=== PATIENT | male | born 1975 | race American Indian/Alaskan Native ===

== ENCOUNTER 2021-03-15 21:19 | Observation (INO) | payer SELFPAY ==
[2021-03-15] MEDS ORDERED: NITROGLYCERIN 0.4 MG TAB SUBL SL ONE (22:14)
--- NOTE | 2021-03-15 22:14 | Emergency Department Report ---
ED General Adult HPI - General Chief complaint: Chest Pain Stated complaint: Left arm pain, left chest pain PUI?: No Time Seen by Provider: 03/15/21 21:58 Source: patient, EMS ( EMS documentation not available at time of chart dictation ), RN notes reviewed Mode of arrival: Stretcher Limitations: No Limitations - History of Present Illness Initial comments: The patient is a pleasant 45-year-old gentleman, with a history of obesity, body mass index of 46, obstructive sleep apnea, CAD, status post CO, diabetes, tobacco use. The patient presents to the ER with a complaint of nontraumatic left-sided chest pain that moves down his left upper extremity. This started last night. It is now present. He denies headache, neck pain, abdominal pain, vomiting, diaphoresis, travel, surgery, DVT and pulmonary embolism risk factors. He was given aspirin by EMS today. He otherwise has not taken aspirin. Patient reports having had a heart attack 2 years ago at [facility] [place], and states this feels exactly the same. The patient has not received his Covid vaccination. He denies loss of taste and smell. He denies midline spinal pain, and bladder/bowel retention or incontinence. There is no family history of DVT or pulmonary embolism that he is aware of. He does not have a local primary care doctor. 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 He reports he is noncompliant with his medications secondary to insurance and proctor issues. He reports that 5 days ago he took an erectile dysfunction medication. However, he has not taken an ED medication in the past 48 hours. -: Sudden, hour(s), days(s) Location: chest Radiation: extremity Quality: aching Consistency: intermittent Improves with: none Worsens with: none Associated Symptoms: denies other symptoms ED Review of Systems ROS: Stated complaint: ARM PAIN Other details as noted in HPI Constitutional: other (Denies loss of taste and smell). denies: fever, weakness Eyes: denies: eye discharge Respiratory: shortness of breath (Chronic shortness of breath). denies: cough Cardiovascular: chest pain Gastrointestinal: denies: abdominal pain Musculoskeletal: denies: back pain Neurological: numbness, paresthesias. denies: weakness ED Past Medical Hx - Past Medical History Hx Hypertension: Yes Hx Heart Attack/AMI: Yes Hx Diabetes: Yes - Social History Smoking Status: Never Smoker ED Physical Exam - General Limitations: No Limitations General appearance: alert, in no apparent distress, obese - Head Head exam: Present: atraumatic, normocephalic - Eye Eye exam: Present: normal appearance, EOMI. Absent: nystagmus - ENT ENT exam: Present: normal exam, normal orophraynx, mucous membranes moist, normal external ear exam - Neck Neck exam: Present: normal inspection, full ROM. Absent: tenderness, meningismus - Respiratory Respiratory exam: Present: normal lung sounds bilaterally. Absent: respiratory distress, wheezes, rales, rhonchi, stridor, decreased breath sounds - Cardiovascular Cardiovascular Exam: Present: regular rate, normal rhythm, normal heart sounds. Absent: bradycardia, tachycardia, irregular rhythm, systolic murmur, diastolic murmur, rubs, gallop - GI/Abdominal GI/Abdominal exam: Present: soft. Absent: distended, tenderness, guarding, rebound, rigid, pulsatile mass - Rectal Rectal exam: Present: deferred - Extremities Exam Extremities exam: Present: normal inspection, full ROM, other (2+ pulses noted in the bilateral upper and lower extremities. There is no palpable cord. negative Homans sign. Muscular compartments are soft. The pelvis is stable.). Absent: pedal edema, calf tenderness - Back Exam Back exam: Present: normal inspection, full ROM. Absent: tenderness, CVA tenderness (R), CVA tenderness (L), paraspinal tenderness, vertebral tenderness - Neurological Exam Neurological exam: Present: alert, oriented X3, normal gait, other (No facial droop. Tongue midline. Extraocular movements intact bilaterally. Facial sensation intact to light touch in V1, V2, V3 distribution bilaterally. 5 and a 5 strength in 4 extremities. Sensation intact to light touch in 4 extremities.). Absent: motor sensory deficit - Psychiatric Psychiatric exam: Present: normal affect, normal mood - Skin Skin exam: Present: warm, dry, intact, normal color. Absent: rash ED Course Vital Signs 03/15/21 21:24 Temperature 98.5 F Pulse Rate 86 Respiratory 22 Rate Blood Pressure 151/92 O2 Sat by Pulse 99 Oximetry - Reevaluation(s) Reevaluation #1: 03/15/21 22:53 Differential diagnosis, including but not limited to: Acute coronary syndrome, GERD, gastritis, hiatal hernia, pneumonia, cervical radiculopathy, obesity, obstructive sleep apnea, noncompliance Assessment and plan: 45-year-old gentleman, who is not currently tachycardic, tachypneic or hypoxic, who denies DVT and pulmonary embolism risk factors, who is low risk by Wells criteria for pulmonary embolism, PERC negative, with chest pain that radiates to the left upper extremity, moderate risk for major adverse cardiac event as per heart score. We do not have access to this patient's old medical records, stress test, catheterization, or EKG. There may be component of cervical radiculopathy here, however, he has 5-5 strength, full range of motion, sensation is intact to light touch in 4 extremities, and has no acute neurologic deficits. Rest, ice, compression, elevation, outpatient physical therapy, and weight loss. We will treat the patient's pain. We will obtain appropriate laboratory studies. We will obtain x-ray the chest. We will reassess after his initial data points. Have recommended admission to the medical service for cardiac risk ratification. I discussed this plan of care with the patient, who verbalized understanding, and who is agreeable to the aforementioned. 03/15/21 23:29 X-ray the chest unremarkable. Laboratory studies unremarkable. Patient to be admitted to the medical service; SHEA Torres working with Dr Dominguez Alfredo to admit for cardiac risk stratification.. ED Medical Decision Making - Lab Data Result diagrams: 03/15/21 22:27 03/15/21 22:27 Vital Signs 03/15/21 21:24 Temperature 98.5 F Pulse Rate 86 Respiratory 22 Rate Blood Pressure 151/92 O2 Sat by Pulse 99 Oximetry Lab Results 03/15/21 03/15/21 03/15/21 Range/Units 22:27 22:27 22:27 WBC 7.2 (4.5-11.0) K/mm3 RBC 5.28 H (3.65-5.03) M/mm3 Hgb 15.7 H (11.8-15.2) gm/dl Hct 46.3 H (35.5-45.6) % MCV 88 (84-94) fl MCH 30 (28-32) pg MCHC 34 (32-34) % RDW 14.3 (13.2-15.2) % Plt Count 213 (140-440) K/mm3 Lymph % (Auto) 28.4 (13.4-35.0) % [place] % (Auto) 7.5 H (0.0-7.3) % Eos % (Auto) 1.4 (0.0-4.3) % Baso % (Auto) 0.5 (0.0-1.8) % Lymph # (Auto) 2.0 (1.2-5.4) K/mm3 [place] # (Auto) 0.5 (0.0-0.8) K/mm3 Eos # (Auto) 0.1 (0.0-0.4) K/mm3 Baso # (Auto) 0.0 (0.0-0.1) K/mm3 Seg Neutrophils % 62.2 (40.0-70.0) % Seg Neutrophils # 4.5 (1.8-7.7) K/mm3 PT 12.0 L (12.2-14.9) Sec. INR 0.83 L (0.87-1.13) Sodium 139 (137-145) mmol/L Potassium 4.3 (3.6-5.0) mmol/L Chloride 102.7 (98-107) mmol/L Carbon Dioxide 26 (22-30) mmol/L Anion Gap 15 mmol/L BUN 11 (9-20) mg/dL Creatinine 0.7 L (0.8-1.3) mg/dL Estimated GFR > 60 ml/min BUN/Creatinine Ratio 16 % Glucose 136 H (75-100) mg/dL Calcium 9.1 (8.4-10.2) mg/dL Magnesium 2.00 (1.7-2.3) mg/dL Total Creatine Kinase 182 H (55-170) units/L Troponin T < 0.010 (0.00-0.029) ng/mL - EKG Data -: EKG Interpreted by Me EKG shows normal: sinus rhythm Rate: normal - EKG Data When compared to previous EKG there are: previous EKG unavailable 03/15/21 22:55 EKG interpreted at 22: 19 Sinus rhythm, 83 bpm, left axis deviation, poor R wave progression, low voltage, intervals within normal limits. Abnormal EKG. No prior for comparison. This is not a STEMI. - Radiology Data Radiology results: pending, image reviewed interpreted by me: 2 view x-ray of the chest, interpreted by myself: No pneumothorax, clear lungs, unremarkable bony anatomy, unremarkable cardiac silhouette. Critical care attestation.: If time is entered above; I have spent that time in minutes in the direct care of this critically ill patient, excluding procedure time. ED Disposition Clinical Impression: Acute chest pain, History of coronary artery disease, Body mass index (BMI) of 45.0 to 49.9 in adult, Noncompliance, History of obstructive sleep apnea Disposition: OP ADMIT IP TO THIS HOSP Is pt being admited?: Yes Does the pt Need Aspirin: No (Given by EMS) Condition: Good Instructions: Chest Pain (ED) Referrals: PRIMARY CARE,MD [Primary Care Provider] - 3-5 Days Heart Score - HEART Score History: Moderately suspicious EKG: Non-specific Age: 45-65 Risk factors: > 3 risk factors or hx of atherosclerotic disease Troponin: < normal limit HEART Score: 5 - EKG Read Time Time EKG Completed: 22:19 EKG Read Time: 22:20 - Critical Actions Critical Actions: 4-6 pts:12-16.6% risk of adverse cardiac event. Should be admitted
[2021-03-15 22:55] LABS: Basophils % (Auto) 0.5 % (0.0-1.8); Eosinophils # (Auto) 0.1 K/mm3 (0.0-0.4); Eosinophils % (Auto) 1.4 % (0.0-4.3); Hematocrit 46.3 % (35.5-45.6); Hemoglobin 15.7 gm/dl (11.8-15.2); Lymphocytes % (Auto) 28.4 % (13.4-35.0); Mean Corpuscular HGB Conc 34 % (32-34); Mean Corpuscular Volume 88 fl (84-94); Monocytes # (Auto) 0.5 K/mm3 (0.0-0.8); Monocytes % (Auto) 7.5 % (0.0-7.3); Platelet Count 213 K/mm3 (140-440); Red Blood Count 5.28 M/mm3 (3.65-5.03); Red Cell Distribution Width 14.3 % (13.2-15.2)
[2021-03-15 23:05] LABS: INR 0.83 (0.87-1.13)
[2021-03-15 23:17] LABS: Blood Urea Nitrogen 11 mg/dL (9-20); Calcium 9.1 mg/dL (8.4-10.2); Hemolysis Index 3
[2021-03-15 23:21] LABS: BUN/Creatinine Ratio 16
--- NOTE | 2021-03-15 23:22 | XRay Report ---
. XR chest routine 2V INDICATION / CLINICAL INFORMATION: Chest Pain COMPARISON: None available. FINDINGS: SUPPORT DEVICES: None. HEART / MEDIASTINUM: No significant abnormality. LUNGS / PLEURA: Lungs are clear. Costophrenic sulci are sharp. No pneumothorax. ADDITIONAL FINDINGS: No significant additional findings. IMPRESSION: 1. No acute findings. Signer Name: Alejandro Franklin MD Signed: 03/15/2021 11:17 PM Workstation Name: [id number]
[2021-03-15] MEDS ORDERED: ONDANSETRON 4 MG/2 ML INJ IV PRN (23:42)
[2021-03-15] MEDS ORDERED: DEXTROSE 50% IN WATER (25GM) 50 ML SYRINGE IV PRN (23:42)
[2021-03-15] MEDS ORDERED: ALBUTEROL 2.5 MG/3 ML NEBU IH PRN (23:42)
[2021-03-15] MEDS ORDERED: ACETAMINOPHEN 325 MG TAB PO PRN (23:42)
[2021-03-15] MEDS ORDERED: MORPHINE 2 MG/1 ML INJ IV PRN (23:44)
[2021-03-15] MEDS ORDERED: NALOXONE 0.4 MG/1 ML INJ IV PRN (23:44)
[2021-03-15] MEDS ORDERED: NITROGLYCERIN 0.4 MG TAB SUBL SL PRN (23:44)
[2021-03-15] MEDS ORDERED: HYDROmorphone 1 MG/1 ML INJ IV PRN (23:44)
[2021-03-15] MEDS ORDERED: D5W/0.45% NACL 1,000 ML IV SCH (23:45)
--- NOTE | 2021-03-15 23:59 | History and Physical Report ---
History of Present Illness Date of examination: 03/15/21 Date of admission: 03/15/2021 Chief complaint: chest pain History of present illness: 45-year-old -[place]in[place] male with history of hypertension, GA (2 years ago), DM, CAD, EMILIANA (noncompliant with CPAP) obesity, tobacco use, and marijuana use who presents [facility] ED with complaints of left-sided chest pain. Patient states he is experiencing 10/10 sharp constant left-sided chest pain with radiation to the left upper extremity x1 day. He states that the pain goes all the way down to his fingers endorses numbness in left fingers. Denies diaphoresis, nausea, or vomiting. He reports the pain feels " exactly the same" when he had his heart attack 2 years ago. Endorses taking erectile dysfunction medication approximately 5 days ago, however he has not taken any meds in the past 48 hours. Denies fever, chills, cough, headache, alterations in vision, alterations in gait, recent fall/injury, abdominal pain, cough, hemoptysis, or recent sick contacts Past History Past Medical History: acute GA (2yrs ago), diabetes, hypertension, hyperlipidemia, other (tobacco use, EMILIANA with CPAP, obesity, ) Past Surgical History: No surgical history, hernia repair (Groin and abdominal) Social history: lives with family (Brother), smoking (Smokes tobacco and marijuana). denies: alcohol abuse, prescription drug abuse, IV drug use Family history: diabetes, hypertension Medications and Allergies Active Meds: Active Medications Nitroglycerin (Nitroglycerin 0.4 Mg Tab Subl) 0.4 mg SL Q5M ONE Stop: 03/15/21 22:15 Review of Systems All systems: negative (As noted in HPI) Exam - Physical Exam Narrative exam: Physical exam General appearance: Present: No acute distress, alert and oriented 3, obese middle-age adult male - EENT Eyes: Present: PERRL, EOM intact ENT: hearing intact, normal dentition - Neck Neck: Present: supple, normal ROM - Respiratory Respiratory effort: Non-labored Respiratory: Diminished bases - Cardiovascular Heart rate: 83 (bpm) Rhythm: Sinus rhythm Heart Sounds: Present: S1 & S2. Absent: rub, click - Extremities Extremities: no ischemia, pulses intact, - Peripheral Assessment Peripheral Pulses: within normal limits - Abdominal General gastrointestinal: Obese, soft, non-tender, normal bowel sounds - Integumentary Integumentary: Present: warm, dry - Musculoskeletal Musculoskeletal: Able to move all extremities -Neurological Neurological: CN II-XII intact - Psychiatric Psychiatric: cooperative - Constitutional Vitals: Temp Pulse Resp BP Pulse Ox 98.5 F 86 22 151/92 99 03/15/21 21:24 03/15/21 21:24 03/15/21 21:24 03/15/21 21:24 03/15/21 21:24 HEART Score - HEART Score EKG: Non-specific Age: 45-65 Risk factors: > 3 risk factors or hx of atherosclerotic disease Troponin: Troponin T < 0.010 ng/mL (0.00-0.029) 03/15/21 22:27 Troponin: < normal limit - Critical Actions Critical Actions: 4-6 pts:12-16.6% risk of adverse cardiac event. Should be admitted Results - Labs CBC & Chem 7: 03/15/21 22:27 03/15/21 22:27 Labs: Laboratory Last Values WBC 7.2 K/mm3 (4.5-11.0) 03/15/21 22:27 RBC 5.28 M/mm3 (3.65-5.03) H 03/15/21 22:27 Hgb 15.7 gm/dl (11.8-15.2) H 03/15/21 22:27 Hct 46.3 % (35.5-45.6) H 03/15/21 22:27 MCV 88 fl (84-94) 03/15/21 22:27 MCH 30 pg (28-32) 03/15/21 22:27 MCHC 34 % (32-34) 03/15/21 22:27 RDW 14.3 % (13.2-15.2) 03/15/21 22:27 Plt Count 213 K/mm3 (140-440) 03/15/21 22:27 Lymph % (Auto) 28.4 % (13.4-35.0) 03/15/21 22:27 [place] % (Auto) 7.5 % (0.0-7.3) H 03/15/21 22:27 Eos % (Auto) 1.4 % (0.0-4.3) 03/15/21 22:27 Baso % (Auto) 0.5 % (0.0-1.8) 03/15/21 22:27 Lymph # (Auto) 2.0 K/mm3 (1.2-5.4) 03/15/21 22:27 [place] # (Auto) 0.5 K/mm3 (0.0-0.8) 03/15/21 22:27 Eos # (Auto) 0.1 K/mm3 (0.0-0.4) 03/15/21 22:27 Baso # (Auto) 0.0 K/mm3 (0.0-0.1) 03/15/21 22:27 Seg Neutrophils % 62.2 % (40.0-70.0) 03/15/21 22:27 Seg Neutrophils # 4.5 K/mm3 (1.8-7.7) 03/15/21 22:27 PT 12.0 Sec. (12.2-14.9) L 03/15/21 22:27 INR 0.83 (0.87-1.13) L 03/15/21 22:27 Sodium 139 mmol/L (137-145) 03/15/21 22:27 Potassium 4.3 mmol/L (3.6-5.0) 03/15/21 22:27 Chloride 102.7 mmol/L (98-107) 03/15/21 22:27 Carbon Dioxide 26 mmol/L (22-30) 03/15/21 22:27 Anion Gap 15 mmol/L 03/15/21 22:27 BUN 11 mg/dL (9-20) 03/15/21 22:27 Creatinine 0.7 mg/dL (0.8-1.3) L 03/15/21 22:27 Estimated GFR > 60 ml/min 03/15/21 22:27 BUN/Creatinine Ratio 16 % 03/15/21 22:27 Glucose 136 mg/dL (75-100) H 03/15/21 22:27 Calcium 9.1 mg/dL (8.4-10.2) 03/15/21 22:27 Magnesium 2.00 mg/dL (1.7-2.3) 03/15/21 22:27 Total Creatine Kinase 182 units/L (55-170) H 03/15/21 22:27 Troponin T < 0.010 ng/mL (0.00-0.029) 03/15/21 22:27 - Imaging and Cardiology Imaging and Cardiology: CXR: FINDINGS: SUPPORT DEVICES: None. HEART / MEDIASTINUM: No significant abnormality. LUNGS / PLEURA: Lungs are clear. Costophrenic sulci are sharp. No pneumothorax. ADDITIONAL FINDINGS: No significant additional findings. IMPRESSION: 1. No acute findings. Assessment and Plan Assessment and plan: Acute Chest Pain -R/O ACS -History of GA (2 years ago treated at [facility]) -Initiate chest pain protocol -Continuous telemetry monitoring -Continue supportive care -Pain mgmt -Troponin negative x 1, will continue to trend -CXR unrevealing -EKG unrevealing for acute ischemic abnormalities -Echo and Lexiscan pending -Start ASA and statin -Cardiology consulted HTN -Monitor BP -Resume home hypertensive meds once medication reconciliation has been updated DM -POC BG monitoring -SSI coverage prn -HgbA1C pending History of EMILIANA -Noncompliant with nocturnal CPAP (reports machine is broken unable to replace) -Placed on nocturnal CPAP while inpatient Obesity -BMI 46 -Diet and lifestyle modifications -May benefit from OP weight mgmt program Tobacco abuse -Current every day smoker -Reports smoking Black and mild 1-2 times per day 7 days a week -Counseled for cessation -Nicotine patch when necessary Marijuana use -Reports smoking marijuana 1-2 times a month -Counseled for cessation DVT and GI PPX -On Lovenox and Pepcid Advance Directives: No VTE prophylaxis?: Chemical, Mechanical Plan of care discussed with patient/family: Yes
[2021-03-16] MEDS ORDERED: NICOTINE 14 MG/24 HR PATCH TD ONE (00:23)
[2021-03-16] MEDS: INSULIN LISPRO 100 UNIT/ML SUB-Q SCH ×4 (02:05→18:44)
[2021-03-16] MEDS ORDERED: REGADENOSON 0.4 MG/5 ML INJ IV ONE (08:23)
[2021-03-16] MEDS ORDERED: ENOXAPARIN 40 MG/0.4 ML INJ SUB-Q SCH (10:00)
[2021-03-16] MEDS ORDERED: ASPIRIN EC 325 MG TAB PO SCH (10:00)
--- NOTE | 2021-03-16 10:35 | Nuclear Medicine Report ---
APPROVED REPORT Exam: Nuclear Stress Test Indication: Chest pain BMI: 0 Stress Test Details Stress Test: Pharmacologic stress testing performed using 0.4 mg of regadenoson per 5 mL given IV over 10 seconds. HR Resting HR: 62 bpm Max HR Achieved: 93 bpm Max Heart Rate (APMHR): 176 bpm Target HR (85% APMHR): 149 bpm % of APMHR: 52 Recovery HR: 74 bpm HR response to stress: Normal HR response to stress BP Resting BP: 135/83 mmHg Max BP: 148/94 mmHg Recovery BP: 138/81 mmHg BP response to stress: Normal blood pressure response to stress. ECG Resting ECG: Sinus Rhythm Stress ECG: Sinus Rhythm ST Change: None Arrhythmia: None Recovery ECG: Sinus Rhythm Recovery ST Change: None Recovery Arrhythmia: None Clinical Reason for Termination: Completed protocol Stress Symptoms: None NM EXAM: Myocardial Perfusion REST/STRESS Imaging Protocol: Rest TI-201/Stress Tc-99m Resting Data Rest SPECT myocardial perfusion imaging was performed in supine position minutes following the intravenous injection of 10 mCi of Tc-99m Myoview. Time of rest injection: 0700 Pharmacologic Stress Pharmacologic stress test was performed by injecting Regadenoson 0.4 mg IV push followed by the intravenous injection of 28 mCi of Tc-99m Myoview. Time of stress injection: 0842 Gated Stress SPECT was performed 30 minutes after stress injection. The images were gated to evaluate regional wall motion and calculate left ventricular ejection fraction. Study Quality Study: excellent Lung Uptake: Normal Study Data TID = 0.95. Perfusion Wall Motion The rest and stress images show normal left ventricular wall motion.LVEF post stress is 52%,mildly dilated LV noted. Nuclear Conclusion ECG Findings: negative for ischemia Clinical Findings: negative for ischemia Nuclear Findings: negative for ischemia Exercise Capacity: not assessed Left Ventricular Function: normal Risk Study: low This is a low risk study with no significant iscemia or scar.
--- NOTE | 2021-03-16 11:06 | Progress Note ---
Assessment and Plan Assessment and plan: Acute Chest Pain -R/O ACS -History of [place] (2 years ago treated at [facility] [place]) -Initiate chest pain protocol -Continuous telemetry monitoring -Continue supportive care -Pain mgmt -Troponin negative x 1, will continue to trend -CXR unrevealing -EKG unrevealing for acute ischemic abnormalities -Echo and Lexiscan pending -Start ASA and statin -Cardiology consulted Left hand numbness -Check cervical spine films HTN -Monitor BP -Resume home hypertensive meds once medication reconciliation has been updated DM -POC BG monitoring -SSI coverage prn -HgbA1C pending History of EMILIANA -Noncompliant with nocturnal CPAP (reports machine is broken unable to replace) -Placed on nocturnal CPAP while inpatient Obesity -BMI 46 -Diet and lifestyle modifications -May benefit from OP weight mgmt program Tobacco abuse -Current every day smoker -Reports smoking Black and mild 1-2 times per day 7 days a week -Counseled for cessation -Nicotine patch when necessary Marijuana use -Reports smoking marijuana 1-2 times a month -Counseled for cessation DVT and GI PPX -On Lovenox and Pepcid History Interval history: No new issues overnight Hospitalist Physical - Constitutional Vitals: Temp Pulse Resp BP Pulse Ox 98.2 F 68 18 136/99 96 03/16/21 10:50 03/16/21 10:50 03/16/21 10:50 03/16/21 10:50 03/16/21 10:50 General appearance: Present: no acute distress, well-nourished - EENT Eyes: Present: PERRL, EOM intact ENT: hearing intact, clear oral mucosa, dentition normal - Neck Neck: Present: supple, normal ROM - Respiratory Respiratory effort: normal Respiratory: bilateral: CTA - Cardiovascular Rhythm: regular Heart Sounds: Present: S1 & S2. Absent: gallop, rub - Extremities Extremities: no ischemia, No edema, Full ROM - Abdominal General gastrointestinal: soft, non-tender, non-distended, normal bowel sounds - Integumentary Integumentary: Present: clear, warm, dry - Neurologic Neurologic: CNII-XII intact, moves all extremities HEART Score - HEART Score EKG: Non-specific Age: 45-65 Risk factors: > 3 risk factors or hx of atherosclerotic disease Troponin: Troponin T < 0.010 ng/mL (0.00-0.029) 07/08/21 06:10 Troponin: < normal limit - Critical Actions Critical Actions: 4-6 pts:12-16.6% risk of adverse cardiac event. Should be admitted Results - Labs CBC & Chem 7: 03/15/21 22:27 03/15/21 22: Labs: Laboratory Last Values WBC 7.2 K/mm3 (4.5-11.0) 03/15/21 22:27 RBC 5.28 M/mm3 (3.65-5.03) H 03/15/21 22:27 Hgb 15.7 gm/dl (11.8-15.2) H 03/15/21 22: Hct 46.3 % (35.5-45.6) H 03/15/21 22: MCV 88 fl (84-94) 03/15/21 22: MCH 30 pg (28-32) 03/15/21 22: MCHC 34 % (32-34) 03/15/21 22: RDW 14.3 % (13.2-15.2) 03/15/21 22: Plt Count 213 K/mm3 (140-440) 03/15/21 22:27 Lymph % (Auto) 28.4 % (13.4-35.0) 03/15/21 22: [place] % (Auto) 7.5 % (0.0-7.3) H 03/15/21 22: Eos % (Auto) 1.4 % (0.0-4.3) 03/15/21 22: Baso % (Auto) 0.5 % (0.0-1.8) 03/15/21 22: Lymph # (Auto) 2.0 K/mm3 (1.2-5.4) 03/15/21 22: [place] # (Auto) 0.5 K/mm3 (0.0-0.8) 03/15/21 22: Eos # (Auto) 0.1 K/mm3 (0.0-0.4) 03/15/21 22: Baso # (Auto) 0.0 K/mm3 (0.0-0.1) 03/15/21 22: Seg Neutrophils % 62.2 % (40.0-70.0) 03/15/21 22:27 Seg Neutrophils # 4.5 K/mm3 (1.8-7.7) 03/15/21 22:27 PT 12.0 Sec. (12.2-14.9) L 03/15/21 22:27 INR 0.83 (0.87-1.13) L 03/15/21 22:27 Sodium 139 mmol/L (137-145) 03/15/21 22:27 Potassium 4.3 mmol/L (3.6-5.0) 03/15/21 22:27 Chloride 102.7 mmol/L (98-107) 03/15/21 22:27 Carbon Dioxide 26 mmol/L (22-30) 03/15/21 22:27 Anion Gap 15 mmol/L 03/15/21 22:27 BUN 11 mg/dL (9-20) 03/15/21 22:27 Creatinine 0.7 mg/dL (0.8-1.3) L 03/15/21 22:27 Estimated GFR > 60 ml/min 03/15/21 22:27 BUN/Creatinine Ratio 16 % 03/15/21 22:27 Glucose 136 mg/dL (75-100) H 03/15/21 22:27 Hemoglobin A1c 8.2 % (4-6) H 03/15/21 22:27 Calcium 9.1 mg/dL (8.4-10.2) 03/15/21 22:27 Magnesium 2.00 mg/dL (1.7-2.3) 03/15/21 22:27 Total Creatine Kinase 182 units/L (55-170) H 03/15/21 22:27 Troponin T < 0.010 ng/mL (0.00-0.029) 03/16/21 06:10 Active Medications - Current Medications Current Medications: Generic Name Dose Route Start Last Admin Trade Name Freq PRN Reason Stop Dose Admin Acetaminophen 650 mg 03/15/21 23:42 Acetaminophen 325 Mg Tab PO Q4H PRN Pain MILD(1-3)/Fever >100.5/WU Albuterol 2.5 mg 03/15/21 23:42 Albuterol 2.5 Mg/3 Ml Nebu IH Q3HRT PRN Shortness Of Breath Aspirin 325 mg 03/16/21 10:00 Aspirin Ec 325 Mg Tab PO QDAY KEENA Atorvastatin Calcium 40 mg 03/16/21 22:00 Atorvastatin 40 Mg Tab PO QHS [facility] Dextrose 50 ml 03/15/21 23:42 Dextrose 50% In Water (25gm) 50 Ml Syringe IV Q30MIN PRN Hypoglycemia Protocol Enoxaparin Sodium 40 mg 03/16/21 10:00 Enoxaparin 40 Mg/0.4 Ml Inj SUB-Q QDAY [facility] Famotidine 20 mg 03/16/21 10:00 Famotidine 20 Mg Tab PO BID [facility] Hydromorphone HCl 0.5 mg 03/15/21 23:44 Hydromorphone 1 Mg/1 Ml Inj IV Q3H PRN Pain , Severe (7-10) Dextrose/Sodium Chloride 1,000 mls @ 75 mls/hr 03/15/21 23:45 D5/0.45ns IV 03/16/21 12:00 DIRECT [facility] Insulin Human Lispro 0 unit 03/16/21 00:00 03/16/21 06:46 Insulin Lispro 100 Unit/Ml SUB-Q Not Given Q6HR [facility] Protocol Morphine Sulfate 2 mg 03/15/21 23:44 Morphine 2 Mg/1 Ml Inj IV Q4H PRN Pain, Moderate (4-6) Naloxone HCl 0.1 mg 03/15/21 23:44 Naloxone 0.4 Mg/1 Ml Inj IV Q2MIN PRN Res Rate </= 8 or 02 SAT < 92% Nitroglycerin 0.4 mg 03/15/21 23:44 Nitroglycerin 0.4 Mg Tab Subl SL .Q5MIN PRN Chest Pain Ondansetron HCl 4 mg 03/15/21 23:42 Ondansetron 4 Mg/2 Ml Inj IV Q6H PRN Nausea And Vomiting Sodium Chloride 10 ml 03/16/21 10:00 Sodium Chloride 0.9% 10 Ml Flush Syringe IV BID [facility] Sodium Chloride 10 ml 03/15/21 23:42 Sodium Chloride 0.9% 10 Ml Flush Syringe IV PRN PRN LINE FLUSH
[2021-03-16] MEDS: FAMOTIDINE 20 MG TAB PO SCH ×2 (11:30→21:49)
--- NOTE | 2021-03-16 13:25 | XRay Report ---
CERVICAL SPINE 4 VIEWS 1155 INDICATION: left hand numbness COMPARISON: None available. FINDINGS: Study includes a swimmer's lateral view. Bony detail in lateral projection is reduced at C6 and particularly at C7. No fractures or dislocations are obvious. Mild degenerative changes are seen in the lower cervical sp ine. Mild disc space narrowing is noted at C5-6 where there is slight retrolisthesis. No soft tissue swelling is seen. Signer Name: Martinez Rose MD Signed: 03/16/2021 1:20 PM Workstation Name: [id number]
--- NOTE | 2021-03-16 16:01 | Consultation ---
History of Present Illness Consult date: 03/16/21 Requesting physician: NATAN PEDROZA Consult reason: chest pain History of present illness: This patient is a 45-year-old male with a significant history of coronary artery disease, AMI 2 years ago, hypertension, diabetes, EMILIANA, tobacco use. He is previously unknown to our practice. Patient presents to [facility] ER with complaint of chest pain x1 day. Chest pain is described as 10 out of 10, sharp substernal to left-sided with radiation to the left hand. Patient states this is identical to symptoms prior to his myocardial infarction 2 years ago. At time of interview chest pain is resolved and patient is symptom-free. He denies weakness, dizziness, shortness of breath, abdominal pa in, N/V/D, recent illness or known exposures. Patient interview is in stress lab prior to exercise MPI stress test. Patient endorses history of EMILIANA noncompliant with CPAP and fell asleep after interview. Past History Past Medical History: acute PR (2yrs ago), diabetes, hypertension, hyperlipidemia, other (tobacco use, EMILIANA with CPAP, obesity, see HPI) Past Surgical History: No surgical history, hernia repair (Groin and abdominal) Social history: lives with family (Brother), smoking (Smokes tobacco and marijuana). denies: alcohol abuse, prescription drug abuse, IV drug use Family history: diabetes, hypertension Medications and Allergies Allergies Allergy/AdvReac Type Severity Reaction Status Date / Time sheep derived (ovine) Allergy Shortness Verified 03/16/21 01:19 of Breath peanut AdvReac Swelling Verified 03/16/21 01:19 Active Meds: Active Medications Acetaminophen (Acetaminophen 325 Mg Tab) 650 mg PO Q4H PRN PRN Reason: Pain MILD(1-3)/Fever >100.5/WU Albuterol (Albuterol 2.5 Mg/3 Ml Nebu) 2.5 mg IH Q3HRT PRN PRN Reason: Shortness Of Breath Aspirin (Aspirin Ec 325 Mg Tab) 325 mg PO QDAY KEENA Atorvastatin Calcium (Atorvastatin 40 Mg Tab) 40 mg PO QHS KEENA Dextrose (Dextrose 50% In Water (25gm) 50 Ml Syringe) 50 ml IV Q30MIN PRN; Protocol PRN Reason: Hypoglycemia Enoxaparin Sodium (Enoxaparin 40 Mg/0.4 Ml Inj) 40 mg SUB-Q QDAY KEENA Famotidine (Famotidine 20 Mg Tab) 20 mg PO BID [facility] Hydromorphone HCl (Hydromorphone 1 Mg/1 Ml Inj) 0.5 mg IV Q3H PRN PRN Reason: Pain , Severe (7-10) Insulin Human Lispro (Insulin Lispro 100 Unit/Ml) 0 unit SUB-Q Q6HR [facility]; Protocol Last Admin: 03/16/21 11:31 Dose: Not Given Documented by: Morphine Sulfate (Morphine 2 Mg/1 Ml Inj) 2 mg IV Q4H PRN PRN Reason: Pain, Moderate (4-6) Naloxone HCl (Naloxone 0.4 Mg/1 Ml Inj) 0.1 mg IV Q2MIN PRN PRN Reason: Res Rate </= 8 or 02 SAT < 92% Nitroglycerin (Nitroglycerin 0.4 Mg Tab Subl) 0.4 mg SL .Q5MIN PRN PRN Reason: Chest Pain Ondansetron HCl (Ondansetron 4 Mg/2 Ml Inj) 4 mg IV Q6H PRN PRN Reason: Nausea And Vomiting Sodium Chloride (Sodium Chloride 0.9% 10 Ml Flush Syringe) 10 ml IV BID [facility] Sodium Chloride (Sodium Chloride 0.9% 10 Ml Flush Syringe) 10 ml IV PRN PRN PRN Reason: LINE FLUSH Review of Systems Constitutional: no weight loss, no weight gain, no fever, no chills, no sweats, no night sweats Ears, nose, mouth and throat: no ear pain, no ear discharge, no decreased hearing, no nose pain, no nasal congestion, no nasal discharge, no sinus pressure Cardiovascular: chest pain, no orthopnea, no palpitations, no rapid/irregular heart beat, no edema, no syncope, no lightheadedness, no shortness of breath Respiratory: no cough, no cough with sputum, no hemoptysis, no shortness of breath, no dyspnea on exertion Gastrointestinal: no abdominal pain, no nausea, no vomiting, no diarrhea Genitourinary Male: no flank pain Musculoskeletal: shooting arm pain, arm numbness/tingling, no neck stiffness, no neck pain, no low back pain Integumentary: no rash, no pruritis, no redness, no sores, no wounds Neurological: no head injury, no paralysis, no weakness, no parathesias, no numbness, no tingling, no seizures, no syncope Psychiatric: no anxiety Endocrine: no cold intolerance, no heat intolerance Hematologic/Lymphatic: no easy bruising, no easy bleeding Allergic/Immunologic: no urticaria Physical Examination Last Vital Signs Temp 98.2 F 03/16/21 10:50 Pulse 68 03/16/21 10:50 Resp 18 03/16/21 10:50 BP 136/99 03/16/21 10:50 Pulse Ox 96 03/16/21 10:50 General appearance: no acute distress HEENT: Positive: PERRL, Normocephaly, Mucus Membranes Moist Neck: Positive: neck supple, trachea midline Cardiac: Positive: Reg Rate and Rhythm, S1/S2 Lungs: Positive: Normal Exam, Normal Breath Sounds Neuro: Positive: Grossly Intact Abdomen: Positive: Unremarkable, Soft Skin: Negative: Rash, Wound Musculoskeletal: No Pain Extremities: Present: upper extr. pulses, lower extr. pulses. Absent: edema Results 03/15/21 22:27 03/15/21 22:27 Coagulation 03/15/21 Range/Units 22:27 PT 12.0 L (12.2-14.9) Sec. INR 0.83 L (0.87-1.13) CBC 03/15/21 Range/Units 22:27 WBC 7.2 (4.5-11.0) K/mm3 RBC 5.28 H (3.65-5.03) M/mm3 Hgb 15.7 H (11.8-15.2) gm/dl Hct 46.3 H (35.5-45.6) % Plt Count 213 (140-440) K/mm3 Lymph # (Auto) 2.0 (1.2-5.4) K/mm3 [place] # (Auto) 0.5 (0.0-0.8) K/mm3 Eos # (Auto) 0.1 (0.0-0.4) K/mm3 Baso # (Auto) 0.0 (0.0-0.1) K/mm3 Comprehensive Metabolic Panel 03/15/21 Range/Units 22:27 Sodium 139 (137-145) mmol/L Potassium 4.3 (3.6-5.0) mmol/L Chloride 102.7 (98-107) mmol/L Carbon Dioxide 26 (22-30) mmol/L BUN 11 (9-20) mg/dL Creatinine 0.7 L (0.8-1.3) mg/dL Glucose 136 H (75-100) mg/dL Calcium 9.1 (8.4-10.2) mg/dL - Imaging and Cardiology Echo: report reviewed (Echocardiogram (03/15/2021): LVEF is 50 to 55%. LV normal size. LV SF normal. Moderate LVH. RV SF is normal.) EKG: report reviewed, image reviewed EKG interpretations - EKG Sinus rhythms and dysrhythmias: sinus rhythm Assessment and Plan Chest pain with history of coronary artery disease, AMI * Chest pain is currently resolved and patient is symptom-free. Twelve-lead shows sinus rhythm with no ischemic changes. Troponins are negative x3. PR is ruled out * Echocardiogram (03/15/2021): LVEF is 50 to 55%. LV normal size. LV SF normal. Moderate LVH. RV SF is normal. * Exercise MPI stress test (03/16/2021): Negative for reversible ischemia Tobacco use * Cessation is encouraged Patient is currently stable cardiac status. Patient may discharge from cardiology standpoint. 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 #[phone] This patient was seen in conjunction with Dr Sandra who agrees with this assessment and plan of care - Patient Problems (1) Acute chest pain Current Visit: Yes Status: Acute (2) Body mass index (BMI) of 45.0 to 49.9 in adult Current Visit: Yes Status: Chronic (3) History of coronary artery disease Current Visit: Yes Status: Chronic (4) History of obstructive sleep apnea Current Visit: Yes Status: Chronic (5) Noncompliance Current Visit: Yes Status: Chronic
[2021-03-16 20:37] VITALS: BP 126/72
[2021-03-17] MEDS ORDERED: INSULIN LISPRO 100 UNIT/ML SUB-Q SCH (07:30)
--- NOTE | 2021-03-17 07:36 | Discharge Summary ---
Providers - Providers Date of Admission: 03/15/21 23:42 Date of discharge: 03/16/21 Attending physician: JOSH MADRID 03/15/21 Consult to Cardiac Rehabilitation [CONS] Routine Reason For Exam: Phase 1 03/15/21 23:44 Consult to Physician [CONS] Routine Comment: Consulting Provider: ESTRELLA SOARES Physician Instructions: Reason For Exam: hx PR, c/o CP Primary care physician: [employer] Hospitalization Reason for admission: cp Condition: Good Hospital course: This patient is a 45-year-old male with a significant history of coronary artery disease, AMI 2 years ago, hypertension, diabetes, EMILIANA, tobacco use who presented to [facility] ER with complaint of chest pain x1 day. Chest pain was described as 10 out of 10, sharp substernal to left-sided with radiation to the left hand. Patient stated this is identical to symptoms prior to his myocardial infarction 2 years ago. At time of interview chest pain was resolved and patient is symptom-free. The patient was admitted with diagnosis of chest pain. Cardiology was consulted and recommended echocardiogram and stress test. Echocardiogram revealed LVEF of 50 to 55% and LV with normal size but moderate LVH. Exercise MPI stress test was also completed and negative for reversible ischemia. Patient also complained of symptoms of numbness in the left hand. Therefore, cervical x-rays were obtained that did show some degenerative changes. Patient was to have further work-up but unfortunately left AMA on 03/16/2021 at approximate 1130 per nurses notes. Dedicated discharge time 32 minutes Disposition: [id number] LEFT AGAINST MED ADVICE Final Discharge Diagnosis (Prints w/discharge instructions): Chest pain, probable GERD, left hand numbness, history of coronary artery disease, AMI 2 years ago, hypertension, diabetes, EMILIANA, tobacco use. Core Measure Documentation - Palliative Care Palliative Care/ Comfort Measures: Not Applicable - Core Measures Any of the following diagnoses?: none Exam - Constitutional Vitals: Temp Pulse Resp BP Pulse Ox 98.1 F 71 20 126/72 93 03/16/21 20:08 03/16/21 20:08 03/16/21 20:08 03/16/21 20:08 03/16/21 20:08 Plan Follow up with: PRIMARY CARE, [Primary Care Provider] - 3-5 Days
--- NOTE | 2021-03-17 10:29 | Electrocardiograph Report ---
[facility] Test Date: 2021-03-15 Test Time: 22:19:29 Pat Name: DAVEY RIBEIROLAND Department: Room: A486 Gender: M [employer] Associate Justice: [place] : 1975 Requested By: TAMI HOLLAND Order Number: [id number] Reading MD: Kali Church Measurements Intervals [place] Rate: 83 P: 62 SC: 180 QRS: -83 QRSD: 77 T: 75 QT: 349 QTc: 410 Interpretive Statements Sinus rhythm Left axis deviation Inferior infarct, old No previous ECG available for comparison Electronically Signed On 03-17-2021 10:29:32 EDT by Kali Church
== END 2021-03-17 00:30 | disposition left against medical advice (07) ==
LOC: ED 21:19 → 4A 23:42
PROVIDERS: ADMIT Internal Medicine Geriatric Medicine; ATTEND Hospitalist
DX: R07.89 Other chest pain (principal); I10 Essential (primary) hypertension; E11.9 Type 2 diabetes mellitus without complications; G47.33 Obstructive sleep apnea (adult) (pediatric); E66.9 Obesity, unspecified; F17.210 Nicotine dependence, cigarettes, uncomplicated; F12.90 Cannabis use, unspecified, uncomplicated; I25.2 Old myocardial infarction; E78.5 Hyperlipidemia, unspecified; I25.10 Atherosclerotic heart disease of native coronary artery without angina pectoris; Z79.899 Other long term (current) drug therapy; Z86.79 Personal history of other diseases of the circulatory system; Z98.890 Other specified postprocedural states; Z68.42 Body mass index [BMI] 45.0-49.9, adult; Z91.14 Patient's other noncompliance with medication regimen
CPT/HCPCS: 36415; 71046; 72040; 78452; 80048; 82550; 82962; 83036; 83735; 84484; 85025; 85610; 93005; 93017; 93306; 99285; A9270; A9502; G0378; J2785